=== PATIENT | male | born 1975 | race Caucasian/White ===

== ENCOUNTER 2018-09-15 11:45 | Emergency (ER) | payer MEDICAID, OTHER ==
[~2018-09-15] VITALS: Ht 180.3 cm; Wt 82.6 kg
[2018-09-15 11:54] VITALS: Ht 180.3 cm; Wt 82.6 kg
[2018-09-15 14:47] LABS: BASOPHIL % 0.4 % (0-2); PLATELET COUNT 272 x10^3mcL (130-400); RED CELL DISTRIBUTION WIDTH 14.4 % (11.5-14.5)
--- NOTE | 2018-09-15 14:48 | NUR ---
PATIENT REFUSED ABG STATING THAT HE HAD A SIMILAR TEST DONE IN THE AND IT HURT TOO MUCH. PT STATED HE DOES NOT WANT ABG.
[2018-09-15 15:08] LABS: CALCIUM 8.8 mg/dL (8.5-10.1); CARBON DIOXIDE 31.4 mmol/L (21-32); CHLORIDE SERUM 103 mmol/L (98-107); CREATININE SERUM 0.9 mg/dL (0.7-1.3); GFR1 > 60 mL/min; GLUCOSE SERUM 111 mg/dL (74-106); POTASSIUM SERUM 4.1 mmol/L (3.5-5.1); SODIUM SERUM 142 mmol/L (136-145)
[2018-09-15 15:12] LABS: ALBUMIN 4.1 g/dL (3.4-5.0); ALKALINE PHOSPHATASE 76 U/L (46-116); ALT/SGPT 27 U/L (16-63); AMYLASE 64 U/L (25-115); AST/SGOT 13 U/L (15-37); BILIRUBIN TOTAL 0.1 mg/dL (0.20-1.00); LIPASE 185 IU/L (73-393); TOTAL PROTEIN, SERUM 7.3 g/dL (6.4-8.2)
[2018-09-15 15:23] LABS: AMPHETAMINE QUAL UR NONE DETECTED (See below)
[2018-09-15 17:24] VITALS: BP 123/78
== END 2018-09-15 17:24 | disposition home or self-care (01) ==
LOC: ED 11:45
PROVIDERS: Emergency Medicine
DX: S29.8XXA Other specified injuries of thorax, initial encounter (principal); I45.10 Unspecified right bundle-branch block; F41.9 Anxiety disorder, unspecified; F43.10 Post-traumatic stress disorder, unspecified; Z72.0 Tobacco use; Y04.0XXA Assault by unarmed brawl or fight, initial encounter; Y93.89 Activity, other specified; Y92.89 Other specified places as the place of occurrence of the external cause; Y99.8 Other external cause status
CPT/HCPCS: 36415; G0480; J1100; J1885

== ENCOUNTER 2018-11-07 03:24 | Emergency (ER) | payer MEDICAID, OTHER ==
[~2018-11-07] VITALS: Ht 177.8 cm; Wt 81.2 kg
[2018-11-07 03:32] VITALS: Ht 177.8 cm; Wt 81.2 kg
[2018-11-07 04:08] LABS: BASOPHIL % 0.3 % (0-2); PLATELET COUNT 206 x10^3mcL (130-400); RED CELL DISTRIBUTION WIDTH 14.5 % (11.5-14.5)
[2018-11-07 04:17] LABS: CARBON DIOXIDE 29.3 mmol/L (21-32); CHLORIDE SERUM 102 mmol/L (98-107); CREATININE SERUM 1.1 mg/dL (0.7-1.3); GFR1 > 60 mL/min; GLUCOSE SERUM 104 mg/dL (74-106); POTASSIUM SERUM 3.7 mmol/L (3.5-5.1); SODIUM SERUM 139 mmol/L (136-145)
[2018-11-07 04:21] LABS: ALBUMIN 4.6 g/dL (3.4-5.0); ALKALINE PHOSPHATASE 75 U/L (46-116); ALT/SGPT 32 U/L (16-63); AST/SGOT 18 U/L (15-37); BILIRUBIN TOTAL 0.33 mg/dL (0.20-1.00); TOTAL PROTEIN, SERUM 7.1 g/dL (6.4-8.2)
[2018-11-07 08:03] VITALS: BP 123/95
== END 2018-11-07 08:03 | disposition home or self-care (01) ==
LOC: ED 03:24
PROVIDERS: Emergency Medicine
DX: R06.00 Dyspnea, unspecified (principal); F41.9 Anxiety disorder, unspecified; F15.10 Other stimulant abuse, uncomplicated; F12.10 Cannabis abuse, uncomplicated; Z86.59 Personal history of other mental and behavioral disorders
CPT/HCPCS: 36415; G0480; Q0092

== ENCOUNTER 2018-11-09 22:17 | Emergency (ER) | payer MEDICAID, OTHER ==
[~2018-11-09] VITALS: Ht 177.8 cm; Wt 83.9 kg
[2018-11-09 22:43] LABS: BASOPHIL % 0.3 % (0-2); PLATELET COUNT 232 x10^3mcL (130-400); RED CELL DISTRIBUTION WIDTH 14.1 % (11.5-14.5)
[2018-11-09 22:55] LABS: CALCIUM 9.1 mg/dL (8.5-10.1); CARBON DIOXIDE 20.4 mmol/L (21-32); CHLORIDE SERUM 100 mmol/L (98-107); CREATININE SERUM 1.6 mg/dL (0.7-1.3); GFR1 51 mL/min; GLUCOSE SERUM 111 mg/dL (74-106); POTASSIUM SERUM 3.5 mmol/L (3.5-5.1); SODIUM SERUM 140 mmol/L (136-145)
[2018-11-09 23:09] LABS: ALBUMIN 4.9 g/dL (3.4-5.0); ALKALINE PHOSPHATASE 79 U/L (46-116); ALT/SGPT 33 U/L (16-63); AST/SGOT 22 U/L (15-37); BILIRUBIN TOTAL 0.29 mg/dL (0.20-1.00); TOTAL PROTEIN, SERUM 7.7 g/dL (6.4-8.2)
[2018-11-09 23:13] LABS: CHOLESTEROL 222 mg/dL (<200)
[2018-11-10 01:08] VITALS: BP 124/84
== END 2018-11-10 01:08 | disposition other institution (70) ==
LOC: ED 22:17
PROVIDERS: Emergency Medicine
DX: F11.23 Opioid dependence with withdrawal (principal); G40.89 Other seizures; F43.10 Post-traumatic stress disorder, unspecified; F41.9 Anxiety disorder, unspecified
CPT/HCPCS: 36415; 82962; G0480; Q0092

== ENCOUNTER 2018-11-09 22:17 | Emergency (ER) | payer OTHER | END 2018-11-10 01:08 | disposition other institution (70) | LOC: ED 22:17 | DX: Z02.89 Encounter for other administrative examinations (principal) ==

== ENCOUNTER 2018-11-10 14:05 | Emergency (ER) | payer MEDICAID ==
[~2018-11-10] VITALS: Ht 177.8 cm; Wt 83.9 kg
[2018-11-10 14:22] VITALS: Ht 177.8 cm; Wt 83.9 kg
[2018-11-10 15:01] LABS: BASOPHIL % 0.2 % (0-2); PLATELET COUNT 205 x10^3mcL (130-400)
[2018-11-10 15:06] LABS: RED CELL DISTRIBUTION WIDTH 14.7 % (11.5-14.5)
[2018-11-10 15:18] LABS: CARBON DIOXIDE 27.2 mmol/L (21-32); CHLORIDE SERUM 105 mmol/L (98-107); GFR1 > 60 mL/min; GLUCOSE SERUM 122 mg/dL (74-106); POTASSIUM SERUM 3.8 mmol/L (3.5-5.1); SODIUM SERUM 141 mmol/L (136-145)
[2018-11-10 15:23] LABS: ALBUMIN 4.4 g/dL (3.4-5.0); ALKALINE PHOSPHATASE 73 U/L (46-116); ALT/SGPT 26 U/L (16-63); AST/SGOT 36 U/L (15-37); TOTAL PROTEIN, SERUM 7.2 g/dL (6.4-8.2)
[2018-11-10 17:02] VITALS: BP 96/61
== END 2018-11-10 17:02 | disposition home or self-care (01) ==
LOC: ED 14:05
PROVIDERS: Emergency Medicine
DX: F11.20 Opioid dependence, uncomplicated (principal); F41.9 Anxiety disorder, unspecified; Z85.47 Personal history of malignant neoplasm of testis
CPT/HCPCS: J1885; J7030; Q0092

== ENCOUNTER 2020-08-16 09:23 | Emergency (ER) | payer OTHER ==
[~2020-08-16] VITALS: Ht 180.3 cm; Wt 88.5 kg
[2020-08-16 09:25] VITALS: Ht 180.3 cm; Wt 88.5 kg
[2020-08-16 12:17] LABS: BASOPHIL % 0.6 % (0.2-1.5); PLATELET COUNT 266 x10^3mcL (152-348); RED CELL DISTRIBUTION WIDTH 13.2 % (12.1-16.2)
[2020-08-16 12:29] LABS: CALCIUM 9.4 mg/dL (8.5-10.1); CARBON DIOXIDE 28.4 mmol/L (21-32); CHLORIDE SERUM 105 mmol/L (98-107); CREATININE SERUM 1.2 mg/dL (0.7-1.3); GFR1 > 60 mL/min; GLUCOSE SERUM 93 mg/dL (74-106); POTASSIUM SERUM 4.3 mmol/L (3.5-5.1); SODIUM SERUM 141 mmol/L (136-145)
[2020-08-16 12:34] LABS: ALBUMIN 4.2 g/dL (3.4-5.0); ALKALINE PHOSPHATASE 56 U/L (46-116); ALT/SGPT 35 U/L (16-63); AST/SGOT 13 U/L (15-37); BILIRUBIN TOTAL 0.38 mg/dL (0.20-1.00); TOTAL PROTEIN, SERUM 7.5 g/dL (6.4-8.2)
[2020-08-16 12:55] VITALS: BP 116/79
== END 2020-08-16 13:37 | disposition home or self-care (01) ==
LOC: ED 09:23
PROVIDERS: Emergency Medicine
DX: R07.89 Other chest pain (principal); U07.1 COVID-19; M25.532 Pain in left wrist